=== PATIENT | male | born 1975 | race Caucasian/White ===

== ENCOUNTER 2017-01-06 12:49 | Emergency (ER) | payer SELFPAY ==
[~2017-01-06] VITALS: Ht 177.8 cm
[2017-01-06] MEDS ORDERED: NO HOME MEDICATION XX (15:38)
[2017-01-06] MEDS ORDERED: NORCO 5-325 TA1 EACH PO (16:44)
[2017-01-06] MEDS ORDERED: NAPROSYN500 M1 PO (16:44)
== END 2017-01-06 16:53 ==
LOC: EDMED 12:49
DX: M79.631 Pain in right forearm (principal); R22.31 Localized swelling, mass and lump, right upper limb; F17.210 Nicotine dependence, cigarettes, uncomplicated; Z98.890 Other specified postprocedural states